=== PATIENT | male | born 1990 | race African-American/Black ===

== ENCOUNTER 2023-09-11 17:52 | Emergency (ER) | payer OTHER ==
[~2023-09-11] VITALS: Ht 175.3 cm; Wt 79.4 kg
[2023-09-11] MEDS ORDERED: CYCLOBENZAPRINE 10 MG TABLET ONE (19:04)
[2023-09-11] MEDS ORDERED: KETOROLAC TROMETHAMINE INJ 30 MG/ML VIAL ONE (19:04)
[2023-09-11] MEDS: CYCLOBENZAPRINE 10 MG TABLET PO ONE (19:13)
[2023-09-11] MEDS ORDERED: CYCL5TAB PO (19:13)
[2023-09-11] MEDS: KETOROLAC TROMETHAMINE INJ 30 MG/ML VIAL IM ONE (19:13)
[2023-09-11 19:20] VITALS: BP 122/85; TEMP 98.2; O2SAT 98
== END 2023-09-11 19:20 | disposition home or self-care (01) ==
LOC: ER 17:57
DX: M79.651 Pain in right thigh (principal)
CPT/HCPCS: 99283; 96372; J1885